=== PATIENT | male | born 2000 | race African-American/Black ===

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

== ENCOUNTER 2018-05-24 17:58 | Emergency (ER) ==
[2018-05-24 18:07] VITALS: BP 117/66; TEMP 96.6; BMI 22.4
[2018-05-24] MEDS ORDERED: TORADOL IVP STA (18:49)
--- NOTE | 2018-05-24 21:02 | CT ---
EXAM: CTA chest with contrast using PE protocol. TECHNIQUE: Helical CTA of the chest was performed with contrast in axial plane with coronal and sagit eduardo reconstructions and separate work station 3-D renderings. COMPARISON: None HISTORY: Chest pain. FINDINGS: There are no filling defects in the pulmonary arteries to the level of the subsegmental branches. The re is no sign of ventricular strain. The lungs are clear with no large effusion or failure or lobar i nfiltrate. There is no pathologic supraclavicular, axillary, mediastinal or hilar adenopathy. There is no pericardial effusion or pneumothorax. There is no aortic dissection or aneurysm. The upp er abdomen is benign with no acute abnormality. There are no acute osseous abnormalities. IMPRESSION: 1. No evidence for pulmonary embolus. 2. Clear lungs. 3. No aortic aneurysm or dissection.
--- NOTE | 2018-05-24 21:12 | ED.PDOC ---
General ED Provider: Dr. SHARIFA TEJEDA-ER Chief Complaint: Chest Wall Injury/Pain Stated Complaint: kiera been getting back into lifting weights again Time Seen by Physician: 17:55 Mode of Arrival: Walk-In Information Source: Patient Exam Limitations: No limitations Primary Care Provider: FRANCY NGUYEN Nursing and Triage Documentation Reviewed and Agree: Yes Does patient meet sepsis criteria?: No System Inflammatory Response Syndrome: Not Applicable Sepsis Protocol: For patient's 13 years and over: Temp is 96.8 and below OR 101 and greater Pulse >90 BPM Resp >20/minute Acutely Altered Mental Status Are patient's symptoms suggestive of a new infection, such as: -Pneumonia -Skin, Soft Tissue -Endocarditis -UTI -Bone, Joint Infection -Implantable Device -Acute Abdominal Infection -Wound Infection -Meningitis -Blood Stream Catheter Infection -Unknown Musculoskeletal Complaint Exam - Elbow Pain Complaint/Exam Mechanism of Injury: Reports: No known trauma Onset/Duration: 4 days Symptoms Are: Still present Onset of Pain: Reports: Immediate Initial Severity: Mild Current Severity: Mild Location: Reports: Discrete (anterior chest---not elbow) Character: Reports: Dull, Aching, Stiffness Aggravating: Reports: Movement, Twisting, Pulling Associated Signs and Symptoms: Denies: Swelling, Redness, Bruising, Fever, Weakness, Numbness, Tingling Differential Diagnoses: Sprain, Strain Review of Systems - Review Of Systems Constitutional: Reports: No symptoms Eyes: Reports: No symptoms Ears, Nose, Mouth, Throat: Reports: No symptoms Respiratory: Reports: No symptoms Cardiac: Reports: Chest pain GI: Reports: No symptoms : Reports: No symptoms Musculoskeletal: Reports: Muscle pain Skin: Reports: No symptoms Neurological: Reports: No symptoms Endocrine: Reports: No symptoms Hematologic/Lymphatic: Reports: No symptoms All Other Systems: Reviewed and Negative Past Medical History - Past Medical History Previously Healthy: Yes Endocrine: Reports: None Cardiovascular: Reports: None Respiratory: Reports: None Hematological: Reports: None Gastrointestinal: Reports: None Genitourinary: Reports: None Neuro/Psych: Reports: None Musculoskeletal: Reports: None Cancer: Reports: None Other Pertinent Past Medical History: 03/28/14 nasalfracture - Surgical History General Surgical History: Reports: Cholecystectomy, Other (PE tubes x 2 as child , cholecystectomy,04/01/14 nasal fracture reduction) - Family History Family History: Reports: Unknown - Social History Smoking Status: Never smoker Hx Substance Use: No Alcohol Screening: None - Immunizations Tetanus Shot up to Date: Yes Physical Exam - Physical Exam Appearance: Well-appearing, No pain distress, Well-nourished Eyes: DIANNE, EOMI, Conjunctiva clear ENT: Ears normal Neck: Supple Respiratory: Airway patent, Breath sounds clear, Breath sounds equal, Respirations nonlabored Cardiovascular: RRR, Pulses normal, No rub, No murmur GI/: Soft, Nontender, No masses, Bowel sounds normal, No Organomegaly Musculoskeletal: Limited ROM Skin: Warm, Dry, Normal color Neurological: Sensation intact, Motor intact, Reflexes intact, Cranial nerves intact, Alert, Oriented Psychiatric: Affect appropriate, Mood appropriate Interpretation - Radiology Interpretation Radiology Interpretation By: Radiologist Radiology Results: Negative Exam Interpreted: CT Scan - EKG Interpretation Time of EKG #1: 21:14 Rate: Normal Rhythm: Sinus Ectopy: None Treadwell: NL ST Segment: Normal Interpretation: nsr Critical Care Note - Critical Care Note Total Time (mins): 0 Course - Course Hematology/Chemistry: 05/24/18 18:58 Orders, Labs, Meds: Lab Review 05/24/18 05/24/18 05/24/18 18:58 18:58 18:58 WBC 4.24 RBC 5.00 Hgb 15.2 Hct 43.8 MCV 87.6 MCH 30.4 MCHC 34.7 RDW Coeff of Ronel 11.8 Plt Count 202 Immature Gran % (Auto) 0.2 Neut % (Auto) 57.3 Lymph % (Auto) 32.8 [place] % (Auto) 9.2 Eos % (Auto) 0.0 Baso % (Auto) 0.5 Immature Gran # (Auto) 0.0 Neut # (Auto) 2.4 Lymph # (Auto) 1.4 [place] # (Auto) 0.4 Eos # (Auto) 0.0 Baso # (Auto) 0.0 ESR 2 Total Creatine Kinase 433.6 H CK-MB (CK-2) 3.060 H CK-MB (CK-2) % 0.7000 Troponin I < 0.012 Orders Category Date Time Status EKG-(ED ONLY) Stat CARDIO 05/24/18 18:48 Completed NPO REMINDER: IMAGING ONCE CARE 05/24/18 18:48 Completed IV [ED IV/MEDIPORT/POWERPORT] .ONCE EMERGENCY 05/24/18 18:48 Active CBC W/ AUTO DIFF Stat LAB 05/24/18 18:58 Completed COMPREHENSIVE METABOLIC PANEL Stat LAB 05/24/18 18:58 Completed CREATINE KINASE Stat LAB 05/24/18 18:58 Completed ESR Stat LAB 05/24/18 18:58 Completed TROPONIN I Stat LAB 05/24/18 18:58 Completed 0.9 % Sodium Chloride [Saline Flush] MEDS 05/24/18 18:48 Ordered 1 syr IVF PRN PRN Ketorolac Tromethamine [Toradol] MEDS 05/24/18 18:49 Discontinued 30 mg IVP ONCE STA CT CHEST PE PROTOCOL Stat RADS 05/24/18 18:48 Completed Medications Generic Name Dose Route Start Last Admin Trade Name Freq PRN Reason Stop Dose Admin Sodium Chloride 1 syr 05/24/18 18:48 05/24/18 19:09 Saline Flush IVF 1 syr PRN PRN Administration To flush IV Discontinued Medications Generic Name Dose Route Start Last Admin Trade Name Freq PRN Reason Stop Dose Admin Ketorolac Tromethamine 30 mg 05/24/18 18:49 05/24/18 19:09 Toradol IVP 05/24/18 18:50 30 mg ONCE STA Administration Vital Signs: Temp Pulse Resp BP Pulse Ox 05/24/18 17:59 96.6 F L 58 L 20 117/66 98 Departure - Departure Time of Disposition: 21:14 Disposition: HOME SELF-CARE Discharge Problem: Chest wall pain Instructions: Chest Wall Pain (ED) Condition: Good Pt referred to PMD for follow-up: Yes IPMP verified?: No Additional Instructions: motrin 400mg tid with food #21---heating pad---rechekc in 72hrs if not improved Allergies/Adverse Reactions: Allergies coconut Allergy (Verified 11/14/17 23:29) hives Home Medications: Ambulatory Orders Epinephrine [Epipen Twinpak] 0.3 mg IM PRN PRN #1 pen.injctr 09/01/17 Disposition Discussed With: Patient
== END 2018-05-24 21:23 | disposition home or self-care (01) ==
LOC: ED 17:58
DX: R07.89 Other chest pain (principal); X50.0XXA Overexertion from strenuous movement or load, initial encounter
CPT/HCPCS: 36415; 80053; 82550; 82553; 84484; 85025; 85651; 93005; 93010; 96375; 99284